=== PATIENT | female | born 1970 | race Caucasian/White ===

== ENCOUNTER 2018-05-03 01:33 | Outpatient (CLI) | payer BC, SELFPAY | END 2018-05-03 01:53 | PROVIDERS: PCP Internal Medicine; Visit Provider Family Medicine | DX: I49.9 Cardiac arrhythmia, unspecified (principal); Z53.8 Procedure and treatment not carried out for other reasons ==

== ENCOUNTER 2018-09-11 07:09 | Outpatient (REF) | payer BC, SELFPAY | END 2018-09-11 07:29 | LOC: NCHCN 07:09 | PROVIDERS: PCP Internal Medicine; Visit Provider Family Medicine | DX: B80 Enterobiasis (principal) | CPT/HCPCS: 87172 ==

== ENCOUNTER 2018-09-17 10:34 | Emergency (ER) | payer BC, SELFPAY ==
[2018-09-17 10:49] VITALS: BP 117/63; PULSE 63; RESP 16; TEMP 36.8; O2SAT 100
--- NOTE | 2018-09-17 11:12 | W.ED.GENAD ---
Discharge Plan Disposition Patient Disposition: HOME Condition: Stable Discharge Details Chief Complaint: Cellulitis Clinical Impression: Tick bite of calf Primary Care Provider: Mina Mcgrath ED Provider: Temo Milton Home Meds and New Rx's Prescriptions: No Action No Known Home Meds RF: 0 Discharge Instructions Instructions: Lyme Disease (ED), Tick Bite (ED) Additional Instructions: If you notice any new or worsening symptoms or become symptomatic feel free to follow-up with the emergency department or your primary care provider for reassessment. Otherwise it is recommended to use bug repellent to minimize exposure to ticks and perform daily tick checks with any possible areas of exposure. Referrals: Mina Mcgrath MD [Primary Care Provider] - (As needed for reassessment) Discharge Data Discharge Date/Time-TO BE ENTERED AT DEPARTURE: 09/17/18 11:25 Medical Decision Making Tick bite right leg with mild central ecchymosis and surrounding mild erythema but no significant signs of cellulitis but more irritation symptoms. Patient did have picture of tick and it does appear to be consistent with deer tick. Patient states that she feels that the tick may have been on her greater than 24 hours possibly 36 hours. Patient denies any other symptoms and is otherwise asymptomatic. Given that it is the correct type of tick and duration of possible attachment I do feel that single dose of doxycycline prophylactically is warranted. Otherwise patient was educated on signs and symptoms to watch for and to follow-up with primary care or return to emergency department for new or significant worsening of symptoms. After discussion of diagnosis and plan of care patient has no further needs, questions, or concerns and states clear understanding to return to the emergency department for any worsening symptoms. HPI General Mode of arrival: ambulatory. Date/Time Provider Initiated Documentation: 09/17/18 10:53. Limitations to Documentation: no limitations. Information obtained by: patient and RN notes reviewed. History of Present Illness 48 year old F presents to the emergency department with the chief complaint of Tick bite, Quality is described as other (Denies pain or discomfort), Patient started experiencing this hour(s) (24-36) and it has been constant. Patient notes no other symptoms.. Patient did receive the following treatments prior to arrival, none Related Data Home Medications Medication Instructions Recorded Confirmed Unknown [No Known Home Meds] 09/17/18 09/17/18 Allergies Allergy/AdvReac Type Severity Reaction Status Date / Time No Known Allergies Allergy Unverified 09/17/18 10:53 General Stated Complaint: Cellulitis HARMAN: 5 Review of Systems Constitutional Denies body ache(s), Denies fever(s) and Denies headache(s) ENT Denies headache(s) Musculoskeletal Denies myalgias, Denies arthralgias and Denies joint swelling Integumentary/Breasts Reports as per HPI, Denies erythema and Denies rash Neurologic Denies headache(s) and Denies paresthesias PFSH Medical History Recurrent urinary tract infection Family History Mother Lupus Father Essential hypertension Heart disease Hyperlipidemia Social History Smoking/Tobacco Use Status: Never Alcohol Intake: current Alcohol Intake frequency: holidays/special occasions only Drug use: Never Do you feel safe in your relationship?: Yes Exam Const General: cooperative, comfortable and no acute distress Orientation: alert, awake and oriented x3 Resp Effort & Inspection: normal respiratory effort and able to speak in complete sentences Skin General skin exam: erythema (Right leg circular area with central bite erica consistent with insect/tick ), no fluctuance and no induration Rashes: no rashes Neuro General: alert, awake and oriented x3 Course Vital Signs Temperature 36.8 C 09/17/18 10:49 Pulse 63 09/17/18 10:49 Respiratory Rate 16 09/17/18 10:49 Blood Pressure 117/63 09/17/18 10:49 Pulse Oximetry 100 09/17/18 10:49 Temperature 36.8 C 09/17/18 10:49 Temperature Source Skin 09/17/18 10:49 Pulse 63 09/17/18 10:49 Respiratory Rate 16 09/17/18 10:49 Respiratory Effort Non-Labored 09/17/18 10:50 Blood Pressure 117/63 09/17/18 10:49 Pulse Oximetry 100 09/17/18 10:49 Pain Level 0 09/17/18 10:49
--- NOTE | 2018-09-17 11:18 | ED.GENADUL_ITS ---
Discharge Plan Disposition Patient Disposition: HOME Condition: Stable Discharge Details Chief Complaint: Cellulitis Clinical Impression: Tick bite of calf Primary Care Provider: Mina Mcgrath ED Provider: Temo Milton Home Meds and New Rx's Prescriptions: No Action No Known Home Meds RF: 0 Discharge Instructions Instructions: Lyme Disease (ED), Tick Bite (ED) Additional Instructions: If you notice any new or worsening symptoms or become symptomatic feel free to follow-up with the emergency department or your primary care provider for reassessment. Otherwise it is recommended to use bug repellent to minimize exposure to ticks and perform daily tick checks with any possible areas of exposure. Referrals: Mina Mcgrath MD [Primary Care Provider] - (As needed for reassessment) Discharge Data Discharge Date/Time-TO BE ENTERED AT DEPARTURE: 09/17/18 11:25 Medical Decision Making Tick bite right leg with mild central ecchymosis and surrounding mild erythema but no significant signs of cellulitis but more irritation symptoms. Patient did have picture of tick and it does appear to be consistent with deer tick. Patient states that she feels that the tick may have been on her greater than 24 hours possibly 36 hours. Patient denies any other symptoms and is otherwise asymptomatic. Given that it is the correct type of tick and duration of possible attachment I do feel that single dose of doxycycline prophylactically is warranted. Otherwise patient was educated on signs and symptoms to watch for and to follow-up with primary care or return to emergency department for new or significant worsening of symptoms. After discussion of diagnosis and plan of care patient has no further needs, questions, or concerns and states clear understanding to return to the emergency department for any worsening symptoms. HPI General Mode of arrival: ambulatory . Date/Time Provider Initiated Documentation: 09/17/18 10:53 . Limitations to Documentation: no limitations . Information obtained by: patient and RN notes reviewed . History of Present Illness 48 year old F presents to the emergency department with the chief complaint of Tick bite, Quality is described as other (Denies pain or discomfort), Patient started experiencing this hour(s) (24-36) and it has been constant. Patient notes no other symptoms.. Patient did receive the following treatments prior to arrival, none Related Data Home Medications Medication Instructions Recorded Confirmed Unknown [No Known Home Meds] 09/17/18 09/17/18 Allergies Allergy/AdvReac Type Severity Reaction Status Date / Time No Known Allergies Allergy Unverified 09/17/18 10:53 General Stated Complaint: Cellulitis HARMAN: 5 Review of Systems Constitutional Denies body ache(s), Denies fever(s) and Denies headache(s) ENT Denies headache(s) Musculoskeletal Denies myalgias, Denies arthralgias and Denies joint swelling Integumentary/Breasts Reports as per HPI, Denies erythema and Denies rash Neurologic Denies headache(s) and Denies paresthesias PFSH Medical History Recurrent urinary tract infection Family History Mother Lupus Father Essential hypertension Heart disease Hyperlipidemia Social History Smoking/Tobacco Use Status: Never Alcohol Intake: current Alcohol Intake frequency: holidays/special occasions only Drug use: Never Do you feel safe in your relationship?: Yes Exam Const General: cooperative, comfortable and no acute distress Orientation: alert, awake and oriented x3 Resp Effort & Inspection: normal respiratory effort and able to speak in complete sentences Skin General skin exam: erythema (Right leg circular area with central bite erica consistent with insect/tick ), no fluctuance and no induration Rashes: no rashes Neuro General: alert, awake and oriented x3 Course Vital Signs Temperature 36.8 C 09/17/18 10:49 Pulse 63 09/17/18 10:49 Respiratory Rate 16 09/17/18 10:49 Blood Pressure 117/63 09/17/18 10:49 Pulse Oximetry 100 09/17/18 10:49 Temperature 36.8 C 09/17/18 10:49 Temperature Source Skin 09/17/18 10:49 Pulse 63 09/17/18 10:49 Respiratory Rate 16 09/17/18 10:49 Respiratory Effort Non-Labored 09/17/18 10:50 Blood Pressure 117/63 09/17/18 10:49 Pulse Oximetry 100 09/17/18 10:49 Pain Level 0 09/17/18 10:49
[2018-09-17] MEDS: Doxycycline Hyclate 100 MG CAP 200 MG PO (11:20)
== END 2018-09-17 11:25 | disposition home or self-care (01) ==
PROVIDERS: Emergency Provider Nurse Practitioner Family; PCP Internal Medicine
DX: S80.861A Insect bite (nonvenomous), right lower leg, initial encounter (principal); W57.XXXA Bitten or stung by nonvenomous insect and other nonvenomous arthropods, initial encounter
CPT/HCPCS: 99283

== ENCOUNTER 2019-01-31 15:36 | Outpatient (REF) | payer BC, SELFPAY ==
[2019-01-31 21:33] LABS: Abs Immature Grans 0.01 k/cumm (0.0-0.09); Absolute Basophil Count 0.01 k/cumm (0.0-0.2); Absolute Eosinophil Count 0.08 k/cumm (0.0-0.7); Absolute Lymphocyte Count 2.74 k/cumm (1.2-3.4); Absolute Monocyte Count 0.43 k/cumm (0.11-0.7); Absolute Neutrophil Count 2.76 k/cumm (1.2-6.7); Basophils % 0.2; Eosinophils % 1.3; HCT 38.2 % (36.0-46.0); HGB 12.9 g/dL (12.0-15.5); Immature Grans % 0.2; Lymphocytes % 45.4; Mean Corp. HGB Concentration 33.8 g/dL (32.0-36.0); Mean Corpuscular Hemoglobin 28.6 pg (27.0-33.0); Mean Corpuscular Volume 84.7 fL (80-95); Mean Platelet Volume 10.9 fL (8.0-11.0); Monocytes % 7.1; Neutrophils % 45.8; Platelet Count 267 x1000/uL (130-400); RBC 4.51 m/cumm (4.00-5.20); RBC Distribution Width 12.5 % (11.7-14.6); White Blood Cell Count 6.03 k/cumm (4.4-10.8)
[2019-01-31 21:52] LABS: TSH 2.46 uIU/mL (0.36-3.74)
== END 2019-01-31 15:56 ==
LOC: NCHCN 15:36
PROVIDERS: PCP Internal Medicine; Visit Provider Internal Medicine
DX: N39.0 Urinary tract infection, site not specified (principal); R19.4 Change in bowel habit; R10.31 Right lower quadrant pain
CPT/HCPCS: 87329; 82270; 84443; 85025; 87177; 87324

== ENCOUNTER 2019-02-25 01:26 | Outpatient (CLI) | payer BC, SELFPAY ==
--- NOTE | 2019-02-25 08:40 | DI.US_ITS ---
EXAM: US PELVIS TRANSVAGINAL CLINICAL HISTORY: RT LOWER QUADRANT ABDOMINAL PAIN, R10.31 TECHNIQUE: Ultrasound performed using standard protocol. Transabdominal and transvaginal exams wer e performed. COMPARISON: ABD/PELVIS WO W CONTRAST from 05/16/2017 FINDINGS: The uterus measures 5.7 x 2.6 x 3.9 cm. Endometrium measures 1 millimeter in thickness. No fibroid s are seen. The ovaries are normal in size. No cysts or masses are seen. There is no free fluid or hydronephrosis. IMPRESSION: Pelvic ultrasound is within normal limits.
== END 2019-02-25 01:46 ==
PROVIDERS: PCP Internal Medicine; Visit Provider Internal Medicine
DX: R10.31 Right lower quadrant pain (principal)
CPT/HCPCS: 76830; 76856

== ENCOUNTER 2019-06-20 11:17 | Outpatient (REF) | payer BC, SELFPAY ==
--- NOTE | 2019-06-20 10:40 | PAPFT_PTH ---
PATIENT: Alba Smallwood LOC: [facility] U#:[id number] AGE/SX: 48/F ROOM: RE06/20/[address]: YAO Velasquez : 1970 BED: DIS: 06/20/2019 SPEC #: [id number] RECD: 06/20/19 13:09 STATUS: MINERVATonio REGio #: [id number] JUSTUS: 06/20/19 10:[address]: Emily Howard DEPT: [facility] Cytology RECD BY: Khalida Vasquez ENTERED: 06/20/19 13:10 SP TYPE: PAPFT OTHR DR: Mina Mcgrath Tissues: 1 - CX/ENDOCX FOR PAP SMEARS Procedures: PAP THIN PREP/UVM Screening HPV DNA PROBE Comments: [id number]
== END 2019-06-20 11:37 ==
LOC: LBN 11:17
PROVIDERS: PCP Internal Medicine; Visit Provider Nurse Practitioner Family
DX: Z12.4 Encounter for screening for malignant neoplasm of cervix (principal); Z11.51 Encounter for screening for human papillomavirus (HPV)
CPT/HCPCS: 88142; 87624

== ENCOUNTER 2019-07-03 15:13 | Outpatient (CLI) | payer BC, SELFPAY ==
--- NOTE | 2019-07-03 | DI.RAD_ITS ---
EXAM: XR KNEE LT 3V AP,LAT,ÁLVARO CLINICAL HISTORY: BILATERAL KNEE PAIN, M25.561, M25.562. TECHNIQUE: 2D digital imaging was performed. COMPARISON: No exams were available for comparison FINDINGS: BONES: No acute fracture is present. No bony destructive lesion is seen. JOINTS: The knee is normally aligned. No joint effusion is seen. No significant degenerative changes. SOFT TISSUE: Normal. IMPRESSION: Normal radiographs of the left knee. DATA REPOSITORY: RADIATION DOSE DELIVERED:
--- NOTE | 2019-07-03 | DI.RAD_ITS ---
EXAM: XR KNEE RT 3V AP,LAT,ÁLVARO CLINICAL HISTORY: BILATERAL KNEE PAIN, M25.561, M25.562. TECHNIQUE: 2D digital imaging was performed. COMPARISON: XR KNEE LT 3V AP,LAT,ÁLVARO from 07/03/2019 FINDINGS: BONES: No acute fracture is present. No bony destructive lesion is seen. JOINTS: The knee is normally aligned. No joint effusion is seen. There are no significant degenerat pamela changes. SOFT TISSUE: Normal. IMPRESSION: Unremarkable radiographs of the right knee. DATA REPOSITORY: RADIATION DOSE DELIVERED:
== END 2019-07-03 15:33 ==
PROVIDERS: PCP Internal Medicine; Visit Provider Specialist/Technologist Athletic Trainer
DX: M25.561 Pain in right knee (principal); M25.562 Pain in left knee
CPT/HCPCS: 73562

== ENCOUNTER 2019-09-09 14:51 | Outpatient (REF) | payer BC, SELFPAY ==
[2019-09-09 21:39] LABS: Absolute Basophil Count 0.01 k/cumm (0.0-0.2); Absolute Eosinophil Count 0.08 k/cumm (0.0-0.7); Absolute Lymphocyte Count 2.33 k/cumm (1.2-3.4); Absolute Neutrophil Count 2.95 k/cumm (1.2-6.7); Basophils % 0.2; Eosinophils % 1.4; HCT 38.9 % (36.0-46.0); Lymphocytes % 40.4; Mean Corp. HGB Concentration 33.4 g/dL (32.0-36.0); Mean Corpuscular Hemoglobin 28.3 pg (27.0-33.0); Mean Corpuscular Volume 84.7 fL (80-95); Mean Platelet Volume 11.3 fL (8.0-11.0); Monocytes % 6.9; Neutrophils % 51.1; Platelet Count 295 x1000/uL (130-400); RBC 4.59 m/cumm (4.00-5.20); RBC Distribution Width 13.1 % (11.7-14.6); White Blood Cell Count 5.77 k/cumm (4.4-10.8)
[2019-09-11 11:26] LABS: IgA 305 mg/dL (85-499); Tissue Transglutaminase IgA <1.2 U/mL (<4.0)
== END 2019-09-09 15:11 ==
LOC: NCHCN 14:51
PROVIDERS: PCP Internal Medicine; Visit Provider Family Medicine
DX: R53.83 Other fatigue (principal); R10.31 Right lower quadrant pain; R19.4 Change in bowel habit; K13.79 Other lesions of oral mucosa; I49.9 Cardiac arrhythmia, unspecified
CPT/HCPCS: 82784; 83516; 83520; 85025

== ENCOUNTER 2019-10-23 02:17 | Outpatient (CLI) | payer BC, SELFPAY ==
--- NOTE | 2019-10-23 11:30 | DI.MAMMO_ITS ---
EXAM: MG MAMMO SCREENING CLINICAL HISTORY: screening,z12.39 TECHNIQUE: Bilateral full field digital CC and MLO mammographic images were obtained with 3D tomosyn thesis and utilizing computer aided detection (CAD). COMPARISON: Available for comparison. FINDINGS: Masses/Architectural Distortion: None seen. Microcalcifications: No suspicious pleomorphic-type are seen. Skin Thickening/Nipple Retraction: None. IMPRESSION: 1. No significant interval change with no specific features of malignancy noted. 2. Unless there is more urgent need, screening mammography is recommended, as per [place] guidelines. BI-RADS Category 1 - Negative Breast Density - Category C - Heterogeneously dense The mammogram demonstrates the patient's breast tissue is dense. Dense breast tissue is very common a nd is not abnormal but dense breast tissue can make it harder to find cancer on a mammogram. Also, de nse breast tissue may increase their breast cancer risk. This information about the result of the [facility] mogram report was provided to the patient to raise their awareness. Use this report when you speak wi th the patient about their risks for breast cancer, which includes their family history. At that time , you may recommend for more screening tests (Ultrasound or MRI) as they might be useful based on the ir risk. A negative radiographic report should not delay biopsy if a dominant or clinically suspicious mass is present. Up to ten percent of cancers are not identified on mammography. A negative report may reinforce clinical impression. Adenosis and dense breasts may obscure an underlying neoplasm. False positive reports average 6 to 10%. Patient will receive a letter notifying them of these results.
== END 2019-10-23 02:37 ==
PROVIDERS: PCP Internal Medicine; Visit Provider Nurse Practitioner Family
DX: Z12.31 Encounter for screening mammogram for malignant neoplasm of breast (principal)
CPT/HCPCS: 77063; 77067

== ENCOUNTER 2020-02-04 17:40 | Outpatient (REF) | payer BC, SELFPAY ==
[2020-02-07 15:53] LABS: Patient Race White; SARS-CoV-2 RNA Undetected (Undetected); SARS-CoV-2 Specimen Source Nasal
== END 2020-02-04 18:00 ==
LOC: NCHCN 17:40
PROVIDERS: PCP Internal Medicine; Visit Provider Internal Medicine
DX: Z20.828 Contact with and (suspected) exposure to other viral communicable diseases (principal)
CPT/HCPCS: U0003

== ENCOUNTER 2020-08-26 14:49 | Outpatient (CLI) | payer BC, SELFPAY ==
--- NOTE | 2020-08-26 14:15 | DI.RAD_ITS ---
Exam(s) XR SHOULDER RT COMPLETE 2+V EXAM: XR SHOULDER RT COMPLETE 2+V CLINICAL HISTORY: rt shoulder pain. TECHNIQUE: 2D digital imaging was performed. COMPARISON: No exams were available for comparison FINDINGS: BONES: No acute fracture is present. No bony destructive lesion is seen. JOINTS: No dislocation present. SOFT TISSUE: Normal. IMPRESSION: Unremarkable radiographs of the right shoulder. DATA REPOSITORY: RADIATION DOSE DELIVERED:
== END 2020-08-26 14:50 | disposition home or self-care (01) ==
LOC: DIORS 14:49
PROVIDERS: PCP Internal Medicine; Referring Provider Internal Medicine; Visit Provider Physician Assistant Surgical
DX: M25.511 Pain in right shoulder (principal)
CPT/HCPCS: 73030

== ENCOUNTER 2020-09-03 01:15 | Outpatient (CLI) | payer BC, SELFPAY ==
--- NOTE | 2020-09-03 07:15 | DI.MRI_ITS ---
Exam(s) MR UPPER JOINT RT WO EXAM: MR UPPER JOINT RT WO CLINICAL HISTORY: ? SOFT TISSUE/LIGAMENTOUS/TENDON INJURY,TRAUMATIC ROTATOR CUFF TEAR,SLAP TECHNIQUE: Multiplanar multisequence MRI of the shoulder was performed. COMPARISON: CR XR SHOULDER RT COMPLETE 2+V from 08/26/2020 FINDINGS: MARROW:There is no evidence of fracture, Hill-Sachs deformity, nor ominous osseous lesions. ROTATOR CUFF MECHANISM: AC JOINT/ACROMIUM: There are minimal degenerative changes in the AC joint. No downgoing osteophytes. There is mild hypertrophied undersurface tissue. No prominent impingement. Also no undersurface h ook at the level of the acromion nor obvious calcific enthesopathy at the level of the coracoacromial ligament.. There is no evidence of os acromiale. Supraspinatus: Some increased signal noted in the supraspinatus tendon. However, this does not marie erse the entire thickness of the tendon. There is no retraction musculotendinous junction. There is a sliver of fluid in the subacromial-subdeltoid bursa. No obvious muscle atrophy Infraspinatus: Intact. No evidence of tear nor muscle atrophy. Teres Minor: Intact. No evidence of tear nor muscle atrophy. Subscapularis/anterior cuff: Small focus of fluid signal abnormality is noted in the superior aspect of the multipennate insertional fibers of the subscapularis just anterior to the lesser tuberosity, c onsistent with focal partial thickness tearing. There is no retraction. No muscle atrophy. BICEPS TENDON: Normal position in the intertubercular groove. No evidence of tear nor displacement. No tenosynovitis.. Biceps anchor appears intact. LABRUM: No evidence of SLAP-type tear. Posterior labrum also appears intact. In the lower anterior labrum there is substance inside there is intrasubstance linear signal and subarticular signal in the osseous glenoid at this level which may indicate subtle tearing at this level. There is no bony Ban kart lesion and no obvious periosteal stripping. However, there is mild increased signal in the florencia on of the inferior glenohumeral ligament. No abnormal intraosseous signal evident at the humeral att achment site of the IGL. GLENOHUMERAL JOINT: Minimal amount of increased fluid is noted in the joint. There is no obvious loo se intra-articular body. No osteophytes. There are no degenerative subarticular cysts. QUADRILATERAL SPACE: No evidence of mass in the region of the axillary nerve and dorsal circumflex hu meral vessels. Visualized triceps muscle at this level appears unremarkable. IMPRESSION: 1. Some increased signal is seen in the supraspinatus tendon. However, there does not appear to be a high-grade full-thickness tear of this structure, despite a sliver of fluid noted in the subdeltoid bursa. Infraspinatus appears unremarkable. 2. There is partial thickness tearing of the most superior aspect of the subscapularis tendon at the level of the lesser tuberosity. No retraction of the musculotendinous junction. No muscle atrophy. 3. Biceps tendon and anchor are intact. 4. Subtle abnormal signal in the anterior inferior labrum and subjacent anterior inferior osseous gl enoid. Does not appear to be a prominent tear at this level nor bony Bankart lesion. Mild increased signal in the region of the inferior glenohumeral ligament. No evidence of SLAP tear nor tear of th e posterior labrum. 5. Minimal degenerative changes in the glenohumeral joint. No osteophytes. No loose intra-articula r body evident. DATA REPOSITORY:
== END 2020-09-03 01:35 ==
PROVIDERS: PCP Internal Medicine; Visit Provider Student in an Organized Health Care Education/Training Program
DX: M25.511 Pain in right shoulder (principal); S46.011A Strain of muscle(s) and tendon(s) of the rotator cuff of right shoulder, initial encounter
CPT/HCPCS: 73221

== ENCOUNTER 2020-11-24 03:03 | Outpatient (CLI) | payer BC, SELFPAY ==
[2020-11-24 10:55] LABS: Source Nasal/Nares
[2020-11-24 13:12] LABS: COVID-19 PCR Negative (Negative)
== END 2020-11-24 03:04 | disposition home or self-care (01) ==
LOC: LBO 03:03
PROVIDERS: PCP Internal Medicine; Visit Provider Student in an Organized Health Care Education/Training Program
DX: Z20.822 Contact with and (suspected) exposure to COVID-19 (principal); Z01.818 Encounter for other preprocedural examination
CPT/HCPCS: 87635

== ENCOUNTER 2020-11-26 06:12 | Day surgery (SDC) | payer BC, SELFPAY ==
[2020-11-26 06:14] VITALS: BP 110/72; PULSE 61; RESP 16; TEMP 36.5; O2SAT 100
[2020-11-26] MEDS: Lactated Ringers 1,000 ML 100 ML IV (06:46)
--- NOTE | 2020-11-26 06:51 | W.ANESPRE ---
General Info Date of Service Date Performed: 11/26/20 Height: 5 ft 4.5 in Weight: 53.524 kg Body Mass Index (BMI): 19.9 Surgical Procedure: Operation Date: 11/26/20 07:40 Proposed Procedures Side Surgeon p Shoulder Manipulation Right Michael Hui MD Meds Allergies and Home Medications Allergies Allergy/AdvReac Type Severity Reaction Status Date / Time No Known Allergies Allergy Verified 11/26/20 06:30 Home Medication Medication Instructions Recorded Unknown [No Known Home Meds] 11/04/20 Current Visit Medications: Current Medications Generic Name Dose Route Start Last Admin Trade Name Freq PRN Reason Stop Dose Admin Ringer's Solution 1,000 mls @ 100 mls/hr 11/26/20 06:00 11/26/20 06:46 IV 12/25/20 23:59 100 mls/hr INFUSION VIK Administration IV Miscellaneous Supplies 1 each 11/26/20 06:00 Iv Access IV 12/25/20 23:59 DIRECTED VIK Sodium Chloride 0 ml 11/26/20 06:00 Normal Saline Flush 10 Ml Syr IV 12/25/20 23:59 PRN PRN Sodium Chloride 0 ml 11/26/20 06:00 Normal Saline 10 Ml Vial IJ 12/25/20 23:59 DIRECTED PRN Sterile Water 0 ml 11/26/20 06:00 Water,Injection,Sterile 10 Ml Vial IJ 12/25/20 23:59 DIRECTED PRN PFSH Active Problems Active Problems: Problem Status Onset Code Adhesive capsulitis of right shoulder M75.01 Instability of right shoulder joint M25.311 Traumatic rotator cuff tear S46.019A Recurrent UTI N39.0 Medical History Medical History Recurrent urinary tract infection Tobacco Smoking/Tobacco Use Status: Never Alcohol Alcohol Intake: current Alcohol intake frequency: holidays/special occasions only Substance Use Substance use: Never Substance use type: does not use Vital Signs and Lab Results Vital Signs Most Recent Vital Signs in EMR: Most Recent Vital Signs Temp Pulse Resp BP Pulse Ox 36.5 C 61 16 110/72 100 11/26/20 06:14 11/26/20 06:14 11/26/20 06:14 11/26/20 06:14 11/26/20 06:14 Lab Results Blood Type / Crossmatch: No Data to Display Complete Blood Count: No Data to Display Complete Metabolic Panel: No Data to Display Liver Function Panel: No Data to Display Coagulation Panel: No Data to Display Cardiac Panel: No Data to Display Arterial Blood Gas: No Data to Display Venous Blood Gas: No Data to Display Pancreas Panel: No Data to Display Thyroid Panel: No Data to Display Infectious Disease: Coronavirus (COVID-19)(PCR) Negative (Negative) 11/24/20 08:39 11/24/20 Coronavirus 2019 Source Nasal/Nares 11/24/20 08:39 11/24/20 Blood Cultures: No Data to Display Toxicology Panel: No Data to Display Panel: No Data to Display Anesthesia Assessment and Plan Anesthesia History Personal History: No History of Anesthesia Complications Family History: No Family History of Anesthesia Complications Exercise Tolerance Exercise Tolerance: Metabolic Equivalents>4 Pertinent Negatives Pertinent Negatives: No Symptoms of GERD, No Major Cardiovascular Symptoms or Complaints and No Major Pulmonary Symptoms or Complaints Cardiac & Pulmonary Exam Cardiac Exam: Normal S1/S2 Heart Sounds Pulmonary Exam: Clear Bilateral Breath Sounds Airway Exam Known Difficult Airway: No Mallampati Class: 2 Mouth Opening: Normal (> 3cm) Thyromental Distance: Greater than 3 cm Neck Range of Motion: Full ROM Neck Circumference: Normal Teeth Condition: Normal Dentition ASA Classification ASA Score: ASA 2 Emergency Case?: No NPO Status NPO Status: NPO Clears >2 hours, Solids >8 hours Status Status: Not Relevant due to Medical History Anesthesia Plan Resuscitation Status: Full Code Anesthesia Technique: General Anesthesia Airway Planned: Natural Airway Monitors Used: Standard Monitors
[2020-11-26 07:13] VITALS: BMI 19.9
--- NOTE | 2020-11-26 07:53 | PDOC.DSDIS_ITS ---
Discharge Plan Disposition Patient Disposition: HOME Condition: Stable Discharge Details Reason For Visit: Right shoulder stiffness Attending Provider: Michael Hui Primary Care Provider: Mina Mcgrath Home Meds and New Rx's Prescriptions: New naproxen 250 mg tablet 250 - 500 mg PO BID PRN (Reason: Moderate pain or swelling) Qty: 30 RF: 0 tramadol 50 mg Tablet 50 mg PO Q8H PRN PRN (Reason: severe pain) Qty: 6 RF: 0 Discharge Instructions Additional Instructions: Surgery: Right shoulder manipulation under anesthesia Activity: Weightbearing as tolerated. Encourage daily stretching and range of motion. Physical therapy has been arranged to resume tomorrow. Prescriptions: Naproxen 250 mg take 1-2 every 12 hours with a meal as needed for moderate pain Tramadol 50 mg take 1 every 8 hours as needed for severe pain You may use [id number] Tylenol (acetaminophen) as needed for mild pain. These pain medications may be taken all at once or in different combinations as needed. Also, recommend Colace (docusate) as a stool softener as surgery and pain medicine cause constipation. Dressings: None Follow-up: 10-[address] Hui (10:15 AM on 12/09/20) Let us know right away if you develop any redness, drainage, fevers, chest pain, or trouble breathing. Do not drink alcohol or drive for at least 24 hours after anesthesia. Please call the office during business hours with any questions or concerns. Referrals: Michael Hui MD [ [facility] STAFF PHYSICIAN] - Discharge Orders Discharge Orders: Discharge Order (Routine); Ordered 11/26/20 Ordered By: Michael Hui DS: Diagnosis Discharge Diagnosis (1) Adhesive capsulitis of right shoulder: Status: Acute
[2020-11-26 07:56] VITALS: BP 120/80; PULSE 58; RESP 14; TEMP 36.6; O2SAT 98
--- NOTE | 2020-11-26 08:02 | ROE_ITS ---
Date of service: 11/26/20 Time of Service: 07:40 Operative Note Operative Note DATE OF PROCEDURE: 11/26/20 PRE-OP DIAGNOSIS: Right shoulder adhesive capsulitis POST-OP DIAGNOSIS: same PROCEDURE: Right shoulder manipulation under anesthesia, CPT number 61015 SURGEON: Michael Hui SANITATION MANAGER: None None ANESTHESIA TYPE: General:No Airway and Primary Nerve Block Refer to Anesthesia Record ESTIMATED BLOOD LOSS: 0 PATHOLOGY: none sent TOURNIQUET TIME: 0 COMPLICATIONS: None Patient was transported to: PACU Patient's condition: stable Implants: None Indications: Please see complete medical record for details. Findings: Restored full range of motion. No instability. Procedure Description: In the operating room, general anesthesia was induced. The patient was positioned supine on the stretcher. Preoperative antibiotics were omitted. The correct patient, procedure, and side of the procedure were all verifiedprior to beginning. Examination under anesthesia revealed limited range of motion: Forward elevation about 95 degrees with tightness and stop about 120 degrees, external rotation to 40 degrees with spring back to 30 degrees, internal rotation at 90 degrees limited about 20 degrees. With the patient under general anesthesia, gentle guided manipulation was performed in all directions taking care to use a short lever arm provide gradual steady pressure alternating directions and achieving excellent, full release of palpable and audible adhesions starting with the elbow at the side into external rotation, followed by direct forward elevation, and then internal rotation with the arm at 90 degrees achieving symmetrical endpoints to the contralateral side of almost 90 degrees external rotation with the elbow at the side, forward elev ation 165 degrees, and internal rotation 85 degrees at 90 degrees. All endpoints were then repeated numerous times with the elbow at the side, forward elevation, and internal and external rotation across the body and at 90 degrees of abduction and external rotation. After full release was confirmed in all directions with motion similar to contralateral side, photos were obtained to demonstrate successful release. No undue pressure traction or force had to be used. Early in manipulation there was mild glenohumeral crepitation likely due to released adhesions. At the end of the procedure following repetitive motions, there was no more appreciable glenohumeral crepitation. Stability was tested and no significant anterior or posterior instability noted even with the patient still under anesthesia including the 9090 position and posterior Annalee testing. No significant sulcus sign or hypermobility about the shoulder. No deformity about the shoulder post procedure. 2+ radial pulse. The patient awoke from anesthesia without complication and was transferred back to the day surgery unit in a stable condition.
--- NOTE | 2020-11-26 08:07 | W.ANESPOSTOP ---
Postoperative Evaluation Date, Time and Location Date Performed: 11/26/20 Time Performed: 08:07 Patient Location: Day Surgery Unit Vital Signs Most Recent Imported Vital Signs: Most Recent Vital Signs Temp Pulse Resp BP Pulse Ox 36.6 C 58 L 14 120/80 98 11/26/20 07:56 11/26/20 07:56 11/26/20 07:56 11/26/20 07:56 11/26/20 07:56 Pain Score Most Recent Pain Score: Most Recent Pain Score Pain Level 0 11/26/20 07:56 Assessment Mental Status: Arousable with meaningful communication Airway and Respiratory Function: Patent airway with normal (patient baseline) respiratory exam Cardiovascular Function: Hemodynamically Stable Hydration Status: Adequately Hydrated Nausea & Vomiting: No Nausea or Vomiting Pain: Pt. Denies Any Pain Peripheral Nerve Block: Regional nerve block not resolved at time of post operative discharge
[2020-11-26 08:30] VITALS: BP 130/66; PULSE 99; RESP 16; TEMP 36.4; O2SAT 99
--- NOTE | 2020-11-26 10:33 | W.ANESNERVE ---
Nerve Block Single Injection Procedure Date and Time Date Performed: 11/26/20 Procedure Start: 07:15 Location Where Procedure Performed Procedure Location: PACU Reason Performed: Postoperative Analgesia Requesting Provider: Michael Hui Timeout Performed Timeout Performed: Yes Monitoring Used ECG, Blood Pressure and SpO2 Sterility Sterility: Hand Hygiene, Surgical Cap, Surgical Mask, Sterile Gloves and Chlorhexidine Sedation Given During Procedure Sedation Given (Indicate Dose Given): Versed IV Dose:: 2mg Patient Mental Status Patient Mental Status: Awake Nerve Block 1st Nerve Block: Laterality: Right Block Type: Interscalene Needle / Catheter Used: 100mm SonoPlex II Local Anesthetic Bolus (Indicate Dose Given): Lidocaine used for local infiltration of skin, Injected in 3-5ml increments after negative blood aspiration, Bupivacaine 0.5% Dose:: 10mL and Exparel Dose:: 10mL Additives (Indicate Dose Given): None Ultrasound: Sterile probe cover and gel used Ultrasound Image Saved?: Yes Nerve Stimulator: Not Used Paresthesia: None Procedure Tolerated: No Complications and Patient tolerated well Procedure Outcome: Successful Performed By: Lynn Aguila Supervised By: Mo Wooten
== END 2020-11-26 09:00 | disposition home or self-care (01) ==
PROVIDERS: PCP Internal Medicine; Visit Provider Student in an Organized Health Care Education/Training Program
PROC: (CPT 23700; principal; 2020-11-26 07:30)
DX: M75.01 Adhesive capsulitis of right shoulder (principal)
CPT/HCPCS: 23700; 76942; J1885; J2250; J2405; J2704

== ENCOUNTER 2021-03-17 20:53 | Outpatient (REF) | payer BC, SELFPAY ==
[2021-03-17 20:34] LABS: HGB 13.4 g/dL (11.2-15.7); MCH 28.2 pg (27.0-33.0); MCHC 32.7 % (32.0-36.0); MCV 86.1 fL (80-95); MPV 11.2 fL (8.0-11.0); Platelet Count 300 10^3/uL (130-400); RBC 4.76 10^6/uL (3.93-5.22); RDW 12.3 % (11.7-14.6); RDW-SD 38.5 fL; WBC 5.48 10^3/uL (4.4-10.8)
[2021-03-17 20:52] LABS: ALT 27 U/L (14-59); AST 21 U/L (15-37); Alkaline Phosphatase 78 U/L (46-116); Anion Gap 7.1 mmol/L (3-11); BUN 12 mg/dL (7-18); Bilirubin, Total 0.5 mg/dL (0.2-1.0); CO2 30.9 mmol/L (21.0-32.0); CREATININE 0.7 mg/dL (0.55-1.02); Calcium 9.1 mg/dL (8.5-10.1); Chloride 103 mmol/L (98-107); Glucose 70 mg/dL (74-106); Potassium 4.4 mmol/L (3.5-5.1); Sodium 141 mmol/L (136-145); TSH (W/Ref FT4) 2.73 uIU/mL (0.36-3.74); Total Protein 7.4 g/dL (6.4-8.2)
== END 2021-03-17 20:54 | disposition home or self-care (01) ==
LOC: NCHCN 20:53
PROVIDERS: PCP Internal Medicine; Visit Provider Family Medicine
DX: L65.9 Nonscarring hair loss, unspecified (principal)
CPT/HCPCS: 80053; 85027; 84443

== ENCOUNTER 2021-04-15 02:30 | Outpatient (CLI) | payer BC, SELFPAY ==
--- NOTE | 2021-04-15 09:07 | DI.MAMMO_ITS ---
Exam(s) MAMMO SCREENING EXAM: MAMMO SCREENING CLINICAL HISTORY: SCREENING FOR BREAST CANCER Z12.39 TECHNIQUE: Mammograms were interpreted according to the usual protocol including computer analysis w Opentopic CAD system, tomosynthesis and C-view imaging. COMPARISON: 2011 through 2019 FINDINGS: The breasts are composed of heterogeneously dense fibroglandular densities, Breast Density category C . No suspicious masses or suspicious microcalcifications are seen. No skin thickening or abnormal axillary lymph nodes are seen. There has been no significant change from prior exams. IMPRESSION: BI-RADS Category 1, Negative mammogram. Yearly screening mammography is recommended. Breast Density Category C, heterogeneously Dense. The mammogram demonstrates the patient's breast tissue is dense. Dense breast tissue is very common a nd is not abnormal but dense breast tissue can make it harder to find cancer on a mammogram. Also, de nse breast tissue may increase breast cancer risk. This information about the result of the mammogram report was provided to the patient to raise their awareness. Use this report when you speak with the patient about their risks for breast cancer, which includes their family history. At that time, you may recommend additional screening tests (Ultrasound or MRI) as they might be useful based on their r isk. A negative radiographic report should not delay biopsy if a dominant or clinically suspicious mass is present. Up to ten percent of cancers are not identified on mammography. A negative report may reinforce clinical impression. Adenosis and dense breasts may obscure an underlying neoplasm. False positive reports average 6 to 10%.
== END 2021-04-15 02:50 ==
PROVIDERS: PCP Internal Medicine; Visit Provider Family Medicine
DX: Z12.31 Encounter for screening mammogram for malignant neoplasm of breast (principal); R92.8 Other abnormal and inconclusive findings on diagnostic imaging of breast
CPT/HCPCS: 77063; 77067

== ENCOUNTER 2021-05-25 16:36 | Outpatient (REF) | payer BC, SELFPAY ==
[2021-05-25 18:01] LABS: Bilirubin Negative (Negative); Blood Trace-intact (Negative); Clarity Clear (Clear); Glucose Negative (Negative); Ketones Negative (Negative); Leukocyte Esterase Small (Negative); Nitrite Negative (Negative); Specific Gravity 1.015 (1.005-1.025); Urobilinogen 0.2 EU/dL (Up TO 0.2)
[2021-05-25 18:08] LABS: Bacteria Moderate HPF (Negative); C & S Indicated? C&S Done As Ordered; Casts Negative LPF (Negative); Crystals Negative HPF (Negative); Epithelial Cells Few HPF (Negative); Mucus Trace (Negative); RBC 0-2 HPF (0-2)
== END 2021-05-25 16:37 | disposition home or self-care (01) ==
LOC: LBN 16:36
PROVIDERS: PCP Internal Medicine; Visit Provider Urology
DX: N39.0 Urinary tract infection, site not specified (principal)
CPT/HCPCS: 87077; 81003; 81015; 87086; 87186

== ENCOUNTER 2021-06-07 15:29 | Outpatient (REF) | payer BC, SELFPAY ==
[2021-06-07 14:23] LABS: Bilirubin Negative (Negative); Blood Moderate (Negative); Clarity Clear (Clear); Glucose Negative (Negative); Ketones Negative (Negative); Leukocyte Esterase Large (Negative); Nitrite Negative (Negative); Urobilinogen 0.2 EU/dL (Up TO 0.2)
[2021-06-07 14:34] LABS: Bacteria Few HPF (Negative); C & S Indicated? C&S Done As Ordered; Casts Negative LPF (Negative); Crystals Negative HPF (Negative); Epithelial Cells Few HPF (Negative); Mucus Negative (Negative); WBC 20-50 HPF (0-5)
== END 2021-06-07 15:30 | disposition home or self-care (01) ==
LOC: LBN 15:29
PROVIDERS: PCP Internal Medicine; Visit Provider Urology
DX: N39.0 Urinary tract infection, site not specified (principal); R30.0 Dysuria; R39.15 Urgency of urination; R10.9 Unspecified abdominal pain
CPT/HCPCS: 81003; 81015; 87086

== ENCOUNTER 2021-10-18 19:02 | Outpatient (REF) | payer BC, SELFPAY ==
[2021-10-18 10:19] LABS: Bilirubin Negative (Negative); Blood Large (Negative); Clarity Clear (Clear); Glucose Negative (Negative); Ketones Negative (Negative); Leukocyte Esterase Moderate (Negative); Nitrite Negative (Negative); Specific Gravity 1.015 (1.005-1.025); Urobilinogen 0.2 EU/dL (Up TO 0.2); pH 6.5 (5-8)
[2021-10-18 10:37] LABS: Bacteria Few HPF (Negative); C & S Indicated? C&S Done As Ordered; Casts Negative LPF (Negative); Crystals Negative HPF (Negative); Epithelial Cells Few HPF (Negative); Mucus Negative (Negative)
== END 2021-10-18 19:03 | disposition home or self-care (01) ==
LOC: LBN 19:02
PROVIDERS: PCP Internal Medicine; Visit Provider Urology
DX: N39.0 Urinary tract infection, site not specified (principal)
CPT/HCPCS: 87077; 81003; 81015; 87086; 87186

== ENCOUNTER 2022-01-02 07:03 | Outpatient (REF) | payer BC, SELFPAY ==
[2022-01-01 23:31] LABS: Bilirubin Negative (Negative); Blood Large (Negative); Clarity Cloudy (Clear); Glucose Negative (Negative); Ketones Negative (Negative); Leukocyte Esterase Trace (Negative); Nitrite Negative (Negative); Specific Gravity 1.025 (1.005-1.025); Urobilinogen 0.2 EU/dL (Up TO 0.2)
[2022-01-01 23:34] LABS: Bacteria Many HPF (Negative); C & S Indicated? C&S Done As Ordered; Casts Negative LPF (Negative); Crystals Negative HPF (Negative); Epithelial Cells Few HPF (Negative); Mucus Negative (Negative)
== END 2022-01-02 07:04 | disposition home or self-care (01) ==
LOC: LBN 07:03
PROVIDERS: PCP Internal Medicine; Visit Provider Urology
DX: N39.0 Urinary tract infection, site not specified (principal)
CPT/HCPCS: 87077; 81003; 81015; 87086; 87186

== ENCOUNTER 2022-08-10 11:11 | Outpatient (REF) | payer BC, SELFPAY ==
[2022-08-10 14:01] LABS: Bilirubin Negative (Negative); Blood Negative (Negative); Clarity Clear (Clear); Glucose Negative (Negative); Ketones Negative (Negative); Leukocyte Esterase Negative (Negative); Nitrite Negative (Negative); Urobilinogen 0.2 mg/dL (Up to 0.2)
== END 2022-08-10 11:12 | disposition home or self-care (01) ==
LOC: LBN 11:11
PROVIDERS: PCP Internal Medicine; Visit Provider Urology
DX: N39.0 Urinary tract infection, site not specified (principal)
CPT/HCPCS: 81003; 87086

== ENCOUNTER 2022-10-12 01:47 | Outpatient (CLI) | payer BC, SELFPAY ==
--- NOTE | 2022-10-12 08:00 | DI.MAMMO_ITS ---
Exam(s) MAMMO SCREENING EXAM: MAMMO SCREENING CLINICAL HISTORY: screening TECHNIQUE: Bilateral full field digital CC and MLO mammographic images were obtained with 3D tomosyn thesis and utilizing computer aided detection (CAD). COMPARISON: Available for comparison. FINDINGS: Masses/Architectural Distortion: There is a new opacity in the superior retroareolar region of the ri ght breast on the MLO view. There are no areas of architectural distortion. Microcalcifications: No suspicious pleomorphic-type are seen. Skin Thickening/Nipple Retraction: None. IMPRESSION: 1. New 6 mm opacity located 2.5 cm from the nipple on the MLO view. 2. This area should be further evaluated with spot compression view. Limited right breast ultrasound should be obtained at that time. BI-RADS Category 0 - Assessment Incomplete: Need additional imaging evaluation Breast Density - Category B - Scattered areas of fibroglandular density Breast density category C or D implies that the patient has dense breast tissue. Dense breast tissue is very common and is not abnormal but dense breast tissue can make it harder to find cancer on a ma mmogram. Also, dense breast tissue may increase their breast cancer risk. This information about the result of the mammogram report was provided to the patient to raise their awareness. Use this report when you speak with the patient about their risks for breast cancer, which includes their family hist ory. At that time, you may recommend for more screening tests (Ultrasound or MRI) as they might be us eful based on their risk. A negative radiographic report should not delay biopsy if a dominant or clinically suspicious mass is present. Up to ten percent of cancers are not identified on mammography. A negative report may reinforce clinical impression. Adenosis and dense breasts may obscure an underlying neoplasm. False positive reports average 6 to 10%. Patient will receive a letter notifying them of these results.
== END 2022-10-12 02:07 ==
LOC: DI 01:47
PROVIDERS: PCP Internal Medicine; Visit Provider Obstetrics & Gynecology
DX: Z12.31 Encounter for screening mammogram for malignant neoplasm of breast (principal)
CPT/HCPCS: 77063; 77067

== ENCOUNTER 2022-10-19 01:55 | Outpatient (CLI) | payer BC, SELFPAY ==
--- NOTE | 2022-10-19 | DI.MAMMO_ITS ---
Exam(s) MG MAMMO SCREEN CALL BACK UNI US BREAST RT LIMITED EXAM: MG MAMMO SCREEN CALL BACK UNI and U/S breast RT limited CLINICAL HISTORY: F/U MAMMO, NEW 6 MM OPACITY 2.5 CM FROM NIPPLE ON MLO VIEW RT BREAST. TECHNIQUE: Craniocaudal and mediolateral oblique Full Field Digital Mammography views of the right b reast with Computer Aided Diagnosis followed by Tomosynthesis and right breast ultrasound. COMPARISON: Comparison is made with prior examinations. FINDINGS: Mammography/Tomosynthesis: Masses/Architectural Distortion: The identified area in the prior mammogram is less concerning on the current examination. No suspicious masses or areas of architectural distortion are seen. Microcalcifictions: No suspicious pleomorphic-type are seen. Skin Thickening/Nipple Retraction: None. Limited right breast US: Echotexture: Normal appearance of the glandular tissue. Shadowing: No suspicious foci. Cyst: None. Solid lesions: There is a solid 0.4 x 0.2 cm hyperechoic nodule at the 11 o'clock position of the rig ht breast 1 cm from the nipple. This likely reflects a lipoma. Ductal dilation: None. IMPRESSION: 1. No evidence of malignancy is noted. 2. Unless there is more urgent need, follow-up screening mammography is recommended, as per [employer] guidelines. 3. The findings were discussed with the patient on the date of the examination. BI-RADS Category 2 - Benign Findings Breast Density - Category C - Heterogeneously dense Breast density Category C or D implies that the patient has dense breast tissue. Dense breast tissue can make it harder to find cancer on a mammogram. Dense breast tissue is also associated with an incr eased risk of breast cancer. This information about the result of the mammogram report was provided to the patient to raise their awareness. Use this report when you speak with the patient about their risks for breast cancer, which includes their family history. At that time, you may recommend additional screening tests (Ultrasoun d or MRI) as these tests may add significant information. A negative radiographic report should not delay biopsy if a dominant or clinically suspicious mass is present. Up to ten percent of cancers are not identified on mammography. A negative report may reinforce clinical impression. Adenosis and dense breasts may obscure an underlying neoplasm. False positive reports average 6 to 10%. Patient will receive a letter notifying them of these results.
== END 2022-10-19 02:15 ==
LOC: DI 01:55
PROVIDERS: PCP Internal Medicine; Visit Provider Obstetrics & Gynecology
DX: Z12.31 Encounter for screening mammogram for malignant neoplasm of breast (principal); N63.12 Unspecified lump in the right breast, upper inner quadrant
CPT/HCPCS: 76642; 77063; 77067

== ENCOUNTER 2023-04-07 17:45 | Outpatient (REF) | payer BC, SELFPAY ==
[2023-04-07 17:01] LABS: Bilirubin Negative (Negative); Blood Negative (Negative); Clarity Clear (Clear); Glucose Negative (Negative); Ketones Negative (Negative); Leukocyte Esterase Negative (Negative); Nitrite Negative (Negative); Specific Gravity 1.015 (1.005-1.025); Urobilinogen 0.2 mg/dL (Up to 0.2)
== END 2023-04-07 17:46 | disposition home or self-care (01) ==
LOC: LBN 17:45
PROVIDERS: PCP Internal Medicine; Visit Provider Urology
DX: N39.0 Urinary tract infection, site not specified (principal)
CPT/HCPCS: 81003; 87086

== ENCOUNTER 2023-11-14 15:52 | Outpatient (REF) | payer BC, SELFPAY ==
--- NOTE | 2023-11-14 15:30 | PAPFT_PTH ---
PATIENT: Alba Smallwood LOC: [facility] U#:[id number] AGE/SX: 53/F ROOM: RE11/14/[address]: Annalee Appiah DO : 1970 BED: DIS: 11/14/2023 SPEC #: [id number] RECD: 11/14/23 18:17 STATUS: ARELI REQ #: [id number] JUSTUS: 11/14/23 15:[address]: Annalee Appiah DEPT: [facility] Cytology RECD BY: Khalida Vasquez ENTERED: 11/14/23 18:17 SP TYPE: PAPFT OTHR DR: Mina Mcgrath Tissues: 1 - CX/ENDOCX FOR PAP SMEARS Procedures: PAP THIN PREP/[facility] Screening HPV DNA PROBE Comments: [id number] (HPV 16 & 18/45)
== END 2023-11-14 15:53 | disposition home or self-care (01) ==
LOC: LBN 15:52
PROVIDERS: PCP Internal Medicine; Visit Provider Obstetrics & Gynecology
DX: N95.2 Postmenopausal atrophic vaginitis (principal); Z01.419 Encounter for gynecological examination (general) (routine) without abnormal findings
CPT/HCPCS: 88142; 87624

== ENCOUNTER → 2023-11-20 01:10 | Outpatient (CLI) | payer BC, SELFPAY ==
--- NOTE | 2023-11-20 06:30 | DI.MAMMO_ITS ---
Exam(s) MAMMO SCREENING EXAM: MAMMO SCREENING CLINICAL HISTORY: screening,z12.39 TECHNIQUE: Mammograms were interpreted according to the usual protocol including computer analysis w Richard Pauer - 3P CAD system, tomosynthesis and C-view imaging. COMPARISON: 2016 through 2022 FINDINGS: The breasts are composed of scattered fibroglandular densities, Breast Density category B. No suspicious masses or suspicious microcalcifications are seen. No skin thickening or abnormal axillary lymph nodes are seen. There has been no significant change from prior exams. IMPRESSION: BI-RADS Category 1, Negative mammogram Yearly screening mammography is recommended. Breast Density - Category B, scattered fibroglandular densities. A negative radiographic report should not delay biopsy if a dominant or clinically suspicious mass is present. Up to ten percent of cancers are not identified on mammography. A negative report may reinforce clinical impression. Adenosis and dense breasts may obscure an underlying neoplasm. False positive reports average 6 to 10%. Patient will receive a letter notifying them of these results.
== END ==
PROVIDERS: PCP Internal Medicine; Visit Provider Obstetrics & Gynecology
DX: Z12.31 Encounter for screening mammogram for malignant neoplasm of breast (principal)
CPT/HCPCS: 77063; 77067

== ENCOUNTER 2024-03-29 15:21 | Outpatient (CLI) | payer BC, SELFPAY ==
[2024-03-29 09:41] LABS: Abs Immature Grans 0.01 10^3/uL (0.0-0.06); Absolute Basophil Count 0.03 10^3/uL (0.0-0.2); Absolute Eosinophil Count 0.07 10^3/uL (0.0-0.7); Absolute Lymphocyte Count 3.36 10^3/uL (1.2-3.4); Absolute Neutrophil Count 2.51 10^3/uL (1.2-6.7); Basophils % 0.5 %; Eosinophils % 1.1 %; HCT 40.4 % (36.0-46.0); HGB 13.6 g/dL (11.2-15.7); Immature Grans % 0.2 %; Lymphocytes % 51.9 %; MCH 28.1 pg (27.0-33.0); MCHC 33.7 % (32.0-36.0); MCV 84 fL (80-95); MPV 10.3 fL (8.0-11.0); Monocytes % 7.7 %; Neutrophils % 38.6 %; Platelet Count 314 10^3/uL (130-400); RBC 4.84 10^6/uL (3.93-5.22); RDW 12.5 % (11.7-14.6); WBC 6.48 10^3/uL (4.4-10.8)
[2024-03-29 10:40] LABS: ALT 33 U/L (14-59); AST 26 U/L (15-37); Albumin 4.1 g/dL (3.4-5.0); Alkaline Phosphatase 92 U/L (46-116); Anion Gap 8.2 mmol/L (3-11); BUN 12 mg/dL (7-18); Bilirubin, Total 0.61 mg/dL (0.2-1.0); CO2 30.8 mmol/L (21.0-32.0); CREATININE 0.9 mg/dL (0.55-1.02); Calcium 9.5 mg/dL (8.5-10.1); Chloride 104 mmol/L (98-107); Estimated GFR 76.92 (mL/min/1.73m2); Glucose 97 mg/dL (74-106); Potassium 4.3 mmol/L (3.5-5.1); Sodium 143 mmol/L (136-145); Total Protein 8.2 g/dL (6.4-8.2)
== END 2024-03-29 15:22 | disposition home or self-care (01) ==
LOC: LBO 15:21
PROVIDERS: PCP Internal Medicine; Visit Provider Urology
DX: R31.0 Gross hematuria (principal)
CPT/HCPCS: 36415; 80053; 85025

== ENCOUNTER 2024-05-20 16:16 | Outpatient (CLI) | payer BC, SELFPAY ==
--- NOTE | 2024-05-20 | DI.RAD_ITS ---
Exam(s) XR CHEST 2V PA LATERAL EXAM: XR CHEST 2V PA LATERAL CLINICAL HISTORY: J06.9 Acute upper respiratory infection, unspecified TECHNIQUE: 2D digital imaging was performed of the chest. Two images were obtained. PA and lateral views were obtained. COMPARISON: No exams were available for comparison FINDINGS: MEDIASTINUM: Normal. HEART: Normal. PULMONARY VASCULATURE: Normal. LUNGS: There is a right lower lobe infiltrate suspicious for pneumonia. The left lung is clear. PLEURAL SPACE: No pleural effusion or pneumothorax. BONE:Within normal limits for the patient's age. OTHER FINDINGS:Normal. IMPRESSION: Right lower lobe infiltrate suspicious for pneumonia. Follow-up chest x-ray to document resolution i s recommended. DATA REPOSITORY: RADIATION DOSE DELIVERED:
== END 2024-05-20 16:36 ==
LOC: DI 16:17
PROVIDERS: PCP Family Medicine; Visit Provider Family Medicine
DX: J06.9 Acute upper respiratory infection, unspecified (principal)
CPT/HCPCS: 71046

== ENCOUNTER 2024-05-30 13:43 | Outpatient (CLI) | payer BC, SELFPAY ==
--- NOTE | 2024-05-30 | DI.RAD_ITS ---
Exam(s) XR CHEST 2V PA LATERAL EXAM: XR CHEST 2V PA LATERAL CLINICAL HISTORY: PERSIST PNEUMONIA SYMPTOMS J18.9, ANTIBIOTICS 10 DAYS, MONITOR WORSENING TECHNIQUE: 2D digital imaging was performed. Two views. COMPARISON: CR XR CHEST 2V PA LATERAL from 05/20/2024 FINDINGS: HEART: Normal size. Aorta: Not dilated. PULMONARY VASCULATURE: Normal. MEDIASTINUM: Unremarkable. LUNGS: There has been some interval clearing of previously noted posterior right lower lobe infiltrat e. There is a somewhat linear area of scarring now seen in this location. No new infiltrates. PLEURAL SPACE: No pleural effusion or pneumothorax. BONE:Unremarkable for age. SOFT TISSUES: Unremarkable. IMPRESSION: Some interval improvement of right lower lobe infiltrate however some densities persist. DATA REPOSITORY: RADIATION DOSE DELIVERED:
== END 2024-05-30 14:03 ==
LOC: DI 13:44
PROVIDERS: PCP Family Medicine; Visit Provider Family Medicine
DX: R91.8 Other nonspecific abnormal finding of lung field (principal)
CPT/HCPCS: 71046

== ENCOUNTER 2024-05-30 14:17 | Outpatient (CLI) | payer BC, SELFPAY ==
[2024-05-30 11:36] LABS: Abs Immature Grans 0.01 10^3/uL (0.0-0.06); Absolute Basophil Count 0.02 10^3/uL (0.0-0.2); Absolute Eosinophil Count 0.07 10^3/uL (0.0-0.7); Absolute Monocyte Count 0.41 10^3/uL (0.1-0.8); Absolute Neutrophil Count 1.36 10^3/uL (1.2-6.7); Basophils % 0.4 %; Eosinophils % 1.6 %; HCT 44.6 % (36.0-46.0); HGB 14.3 g/dL (11.2-15.7); Immature Grans % 0.2 %; Lymphocytes % 58.2 %; MCH 27.6 pg (27.0-33.0); MCHC 32.1 % (32.0-36.0); MCV 86 fL (80-95); MPV 9.7 fL (8.0-11.0); Monocytes % 9.2 %; Neutrophils % 30.4 %; Platelet Count 390 10^3/uL (130-400); RBC 5.19 10^6/uL (3.93-5.22); RDW 12.6 % (11.7-14.6); RDW-SD 39.7 fL; WBC 4.47 10^3/uL (4.4-10.8)
[2024-05-30 11:58] LABS: ALT 40 U/L (14-59); AST 32 U/L (15-37); Albumin 3.9 g/dL (3.4-5.0); Alkaline Phosphatase 86 U/L (46-116); Anion Gap 6.7 mmol/L (3-11); BUN 9 mg/dL (7-18); Bilirubin, Total 0.38 mg/dL (0.2-1.0); CO2 32.3 mmol/L (21.0-32.0); CREATININE 0.9 mg/dL (0.55-1.02); Calcium 9.3 mg/dL (8.5-10.1); Chloride 103 mmol/L (98-107); Estimated GFR 76.92 (mL/min/1.73m2); Glucose 89 mg/dL (74-106); Potassium 3.2 mmol/L (3.5-5.1); Sodium 142 mmol/L (136-145); Total Protein 8.7 g/dL (6.4-8.2)
[2024-05-30 12:04] LABS: C-Reactive Protein < 0.50 mg/dL (<or=0.5)
== END 2024-05-30 14:18 | disposition home or self-care (01) ==
LOC: LBO 14:18
PROVIDERS: PCP Family Medicine; Visit Provider Family Medicine
DX: R50.9 Fever, unspecified (principal)
CPT/HCPCS: 36410; 80053; 87040; 85025; 86140

== ENCOUNTER 2024-10-02 14:39 | Outpatient (REF) | payer BC, SELFPAY ==
[2024-10-02 15:08] LABS: Bilirubin Negative (Negative); Blood Trace-intact (Negative); Clarity Cloudy (Clear); Glucose Negative (Negative); Ketones Negative (Negative); Leukocyte Esterase Small (Negative); Nitrite Negative (Negative); Specific Gravity 1.025 (1.005-1.025); Urobilinogen 0.2 mg/dL (Up to 0.2); pH 5.5 (5-8)
[2024-10-02 15:17] LABS: Bacteria Few HPF (Negative); C & S Indicated? C&S Done As Ordered; Casts Negative LPF (Negative); Crystals Moderate Amorphous HPF (Negative); Epithelial Cells Few HPF (Negative); Mucus Negative (Negative)
== END 2024-10-02 14:40 | disposition home or self-care (01) ==
LOC: LBN 14:39
PROVIDERS: PCP Family Medicine; Visit Provider Urology
DX: N39.0 Urinary tract infection, site not specified (principal); R82.89 Other abnormal findings on cytological and histological examination of urine
CPT/HCPCS: 87077; 81003; 81015; 87086; 87186

== ENCOUNTER 2024-11-19 10:31 | Outpatient (REF) | payer BC, SELFPAY ==
--- NOTE | 2024-11-19 09:50 | PAPFT_PTH ---
PATIENT: Alba Smallwood LOC: [facility] U#:[id number] AGE/SX: 54/F ROOM: RE11/19/[address]: Annalee Appiah DO : 1970 BED: DIS: 11/19/2024 SPEC #: [id number] RECD: 11/19/24 13:11 STATUS: ARELI REQ #: [id number] JUSTUS: 11/19/24 09:[address]: Annalee Appiah DEPT: [facility] Cytology RECD BY: Khalida Vasquez ENTERED: 11/19/24 13:11 SP TYPE: PAPFT OTHR DR: Mikala Toussaint Tissues: 1 - CX/ENDOCX FOR PAP SMEARS Procedures: PAP THIN PREP/[facility] Screening HPV DNA PROBE Comments: [id number] (HPV 16 & 18/45)
[2024-11-19 22:32] LABS: ALT 30 U/L (14-59); AST 27 U/L (15-37); Albumin 4.1 g/dL (3.4-5.0); Alkaline Phosphatase 91 U/L (46-116); Anion Gap 7.1 mmol/L (3-11); BUN 9 mg/dL (7-18); Bilirubin, Total 0.6 mg/dL (0.2-1.0); CO2 29.9 mmol/L (21.0-32.0); Calcium 9.3 mg/dL (8.5-10.1); Chloride 103 mmol/L (98-107); Estimated GFR 88.05 (mL/min/1.73m2); Glucose 101 mg/dL (74-106); Potassium 3.9 mmol/L (3.5-5.1); Sodium 140 mmol/L (136-145); Total Protein 7.5 g/dL (6.4-8.2)
== END 2024-11-19 10:32 | disposition home or self-care (01) ==
LOC: LBN 10:31
PROVIDERS: Family Medicine; PCP Family Medicine; Visit Provider Obstetrics & Gynecology
DX: Z12.4 Encounter for screening for malignant neoplasm of cervix (principal)
CPT/HCPCS: 80053; 85027; 88142; 87624

== ENCOUNTER 2024-12-17 11:59 | Outpatient (CLI) | payer BC, SELFPAY ==
--- NOTE | 2024-12-17 07:30 | DI.MAMMO_ITS ---
Exam(s) MAMMO SCREENING EXAM: MAMMO SCREENING CLINICAL HISTORY: screening,z12.39 TECHNIQUE: Bilateral full field digital CC and MLO mammographic images were obtained with 3D tomosynthesis and utilizing computer aided detection (CAD). COMPARISON: Comparison is made with prior examinations. FINDINGS: Masses/Architectural Distortion: No suspicious masses or areas of architectural distortion are present. Microcalcifications: No suspicious pleomorphic-type are seen. Skin Thickening/Nipple Retraction: None. IMPRESSION: 1. No significant interval change with no specific features of malignancy noted. 2. Unless there is more urgent need, screening mammography is recommended, as per [employer] guidelines. BI-RADS Category 1 - Negative Breast Density - Category B - There are scattered areas of fibroglandular density. Breast density Category C or D implies that the patient has dense breast tissue. Dense breast tissue can make it harder to find cancer on a mammogram. Dense breast tissue is also associated with an increased risk of breast cancer. This information about the result of the mammogram report was provided to the patient to raise their awareness. Use this report when you speak with the patient about their risks for breast cancer, which includes their family history. At that time, you may recommend additional screening tests (Ultrasound or MRI) as these tests may add significant information. A negative radiographic report should not delay biopsy if a dominant or clinically suspicious mass is present. Up to ten percent of cancers are not identified on mammography. A negative report may reinforce clinical impression. Adenosis and dense breasts may obscure an underlying neoplasm. False positive reports average 6 to 10%. Patient will receive a letter notifying them of these results.
== END 2024-12-17 12:19 ==
LOC: DI 11:59
PROVIDERS: PCP Family Medicine; Visit Provider Obstetrics & Gynecology
DX: Z12.31 Encounter for screening mammogram for malignant neoplasm of breast (principal); R92.323 Mammographic fibroglandular density, bilateral breasts
CPT/HCPCS: 77063; 77067

== ENCOUNTER 2025-01-14 17:56 | Outpatient (REF) | payer BC, SELFPAY ==
[2025-01-14 18:01] LABS: Glucose Negative (Negative)
== END 2025-01-14 17:57 | disposition home or self-care (01) ==
LOC: LBN 17:56
PROVIDERS: PCP Family Medicine; Visit Provider Urology
DX: N39.0 Urinary tract infection, site not specified (principal)
CPT/HCPCS: 81003; 87086

== ENCOUNTER 2025-03-13 18:22 | Outpatient (REF) | payer BC, SELFPAY ==
[2025-03-13 20:36] LABS: Cholesterol 221 mg/dL (<200); HDL Cholesterol 78 mg/dL (>40)
== END 2025-03-13 18:23 | disposition home or self-care (01) ==
LOC: NCHCN 18:22
PROVIDERS: PCP Family Medicine; Visit Provider Family Medicine
DX: Z13.220 Encounter for screening for lipoid disorders (principal)
CPT/HCPCS: 80061

== ENCOUNTER 2025-03-26 15:01 | Outpatient (REF) | payer BC, SELFPAY ==
[2025-03-26 20:53] LABS: HCT 38.6 % (36.0-46.0); HGB 13.0 g/dL (11.2-15.7); MCH 28.0 pg (27.0-33.0); MCHC 33.7 % (32.0-36.0); MCV 83 fL (80-95); MPV 10.3 fL (8.0-11.0); Platelet Count 311 10^3/uL (130-400); RBC 4.64 10^6/uL (3.93-5.22); RDW 12.4 % (11.7-14.6); RDW-SD 37.7 fL; WBC 7.55 10^3/uL (4.4-10.8)
== END 2025-03-26 15:02 | disposition home or self-care (01) ==
LOC: NCHCN 15:01
PROVIDERS: PCP Family Medicine; Visit Provider Family Medicine
DX: R07.89 Other chest pain (principal)
CPT/HCPCS: 85027

== ENCOUNTER → 2025-04-10 00:10 | Outpatient (CLI) | payer BC, SELFPAY ==
--- NOTE | 2025-04-10 | ETT_ITS ---
APPROVED REPORT Exam: Exercise Treadmill Patient Location: Out-Patient Room/Bed: Stress Nurse: Laura Lujan RN Ordering Provider:FERNY DEJESUS, Contact Number: [phone] BMI: 21.28 Baseline Rhythm: Sinus Rhythm. Comment: Resting ST-T wave abnormalities; T wave inversion in leads aVL and V2. Indications: Atypical Chest Pain. Medical History Medical History: Anemia; Elevated BP Readings; Anxiety; Adjustment Disorder w/ Depressed Mood; PTSD. Cardiac Medications: Estradiol. Allergies: None. Cardiac Risk Factors: Family Hx. Previous Cardiac Procedures: None. Pretest Chest Pain Characteristics: None. Exercise History: Physically active. Physical Disabilities: None. Lung Sounds: Clear bilaterally throughout, anterior and posterior. Heart Sounds: S1 and S2 auscultated. Stress Test Details Test: Exercise stress testing was performed using a Frank protocol. Rest Stress HR Resting HR Supine: 62 bpm Max Heart Rate (APMHR): 167 bpm Resting HR Standin bpm Target HR (85% APMHR): 142 bpm Max HR Achieved: 162 bpm % of APMHR: 97 Recovery HR: 83 bpm HR response to stress: Normal HR response to stress. BP Resting BP Supine: 122/78 mmHg Resting BP Standin/78 mmHg Max BP: 162/80 mmHg Recovery BP: 114/68 mmHg BP response to stress: Normal blood pressure response to stress. ECG Resting ECG: Sinus Rhythm. Ectopy: None. Comment: Resting ST-T abnormalities; T wave inversion in leads aVL and V2. Stress ECG: Sinus Tachycardia. ST Change: No significant ST segment changes noted. Arrhythmia: None. Comment: Resting ST-T abnormalities; T wave inversion in leads aVL and V2. Recovery ECG: Sinus Rhythm. Recovery ST Change: No significant ST segment changes noted. Recovery Arrhythmia: None. Comment: Resting ST-T abnormalities; T wave inversion in leads aVL and V2. Clinical Reason for Termination: Target HR Achieved, Fatigue. Stress Symptoms: General Fatigue. Exercise duration: 11 min08 sec Highest Stage Reached: Stage 4: 4.2 mph at 16% grade. Exercise capacity: 13.48 METs Angina Score: None Gómez Treadmill Score: 9.4 Rate Pressure Product: [id number] Stress ECG Conclusion 1. Resting electrocardiogram was normal 2. Patient exercised on the Frank protocol and completed a workload of 13 METS 3. Normal heart rate and blood pressure response to exercise. The patient achieved 97% of maximal predicted heart rate for age 4. There was no electrocardiographic evidence of myocardial ischemia 5. There were no dysrhythmias Gómez Treadmill Score is 9.4 which is Low risk. Stress Test Summary STAGE Time (mins) Speed (mph) Grade (%) HR BP SpO2 SYMPTOMS METS Supine 62 122/78 98 Standing 71 108/78 98 1 3 1.7 10 104 98 4.5 2 6 2.5 12 113 144/80 98 7 3 9 3.4 14 126 156/84 98 10 4 12 4.2 16 160 98 13 1 min recovery 143 162/80 92 3 min recovery 84 156/60 93 6 min recovery 83 114/68 97 Pt. performed an ETT stress test using the Frank protocol. Stress test was stopped when pt. achieved a heart rate higher than the target heart rate and when pt. requested to stop the stress test. Pt. was asymptomatic throughout the stress test, other than mild fatigue as she was requesting to stop the stress test. Pt. was conversing pleasantly with nursing staff upon leaving the Stress Lab. Pt. left ambulatory in no apparent distress.
== END ==
LOC: DI 00:10
PROVIDERS: PCP Family Medicine; Visit Provider Family Medicine
DX: R07.89 Other chest pain (principal)
CPT/HCPCS: 93017